=== PATIENT | female | born 1940 | race Caucasian/White ===

== ENCOUNTER 2023-07-03 09:07 | Outpatient (REF) | payer MEDICARE, BC, SELFPAY ==
[2023-07-03 11:05] LABS: Hematocrit 39.9 % (37.0-47.0); Hemoglobin 12.1 g/dl (12.0-16.0); Mean Corpuscular HGB Conc 30.3 g/dl (31.0-35.0); Mean Corpuscular Hemoglobin 25.3 pg (27.0-33.0); Mean Corpuscular Volume 83.3 fL (80.0-98.0); Mean Platelet Volume 10.1 fL (9.4-12.3); Platelet Count 269 X10*3/uL (160-400); Red Blood Count 4.79 X10*6/uL (4.20-5.50); White Blood Count 7.3 X10*3/uL (4.8-10.8)
[2023-07-03 12:09] LABS: Anion Gap 12 (12-20); Blood Urea Nitrogen 19 mg/dL (9-16); Calcium 9.7 mg/dL (8.4-10.2); Carbon Dioxide 26 mmol/L (22-29); Chloride 109 mmol/L (96-108); Estimated Glomerular Filt Rate 49; Glucose Random 86 mg/dL (60-115); Potassium 4.7 mmol/L (3.3-5.1); Sodium 142 mmol/L (135-145)
[2023-07-03 12:28] LABS: TSH reflex Free T4 0.52 uIU/mL (0.32-4.0)
[2023-07-05 17:49] LABS: Transglutaminase IgA <1.0 U/mL
[2023-07-05 19:57] LABS: Immunoglobulin A 104 mg/dL (70-320)
== END 2023-07-03 09:08 | disposition home or self-care (01) ==
LOC: HO.LAB 09:07
PROVIDERS: PCP Internal Medicine; Referring Provider Internal Medicine; Visit Provider Internal Medicine
DX: R10.13 Epigastric pain (principal); R19.7 Diarrhea, unspecified
CPT/HCPCS: 36415; 80048; 82784; 84443; 85027; 86364; 99202

== ENCOUNTER 2023-07-03 09:07 | Outpatient (AMB) | payer MEDICARE, BC, SELFPAY ==
--- NOTE | 2023-07-03 09:08 | MHC.OFFVIS ---
Intake Vital Signs 07/03/23 09:14 Height 5 ft 4 in Weight 174 lb 2.643 oz BMI 29.9 BP 164/65 H Blood Pressure Location Lt brachial Position Sitting Pulse 43 L Intake Visit Reasons: abdominal pain, diarrhea Intake Note: Reba presents in the office as a new patient for abdominal pain. Allergies Seasonal Allergies Allergy (Mild, Verified 07/03/23 09:15) Unknown HPI HPI Comments History of Present Illness Details This is a 82 y.o F with PMH of who is here for new onset of abdominal discomfort and bloating since ablation for Afib in March. Reports abd pressure in epigastric region associated with discomfort and bloating that gets progressively worse during the day. Sometimes leads to early satiety. However no changes in appetite, swallowing, unintentional weight loss. No changes in BMs either. Reports having an xray scheduled for evaluation in Oct. Completed CRC screening. Last EGD was almost 20 y ago for acid reflux per her report. PFSH Medical History (Updated 07/03/23 @ 09:55 by Erma David MD) Hx of cancer of lung Surgical History (Updated 07/03/23 @ 09:16 by ROJELIO Hernandez) Hx of cholecystectomy Hx of colonoscopy History of esophagogastroduodenoscopy (EGD) Family History (Updated 07/03/23 @ 09:17 by ROJELIO Hernandez) Father Colon cancer Review of Systems Const All systems reviewed & are unremarkable except as noted in HPI and below Physical Exam Vital Signs: Last Vital Signs Pulse 43 L 07/03/23 09:14 BP 164/65 H 07/03/23 09:14 BMI result Body Mass Index 29.9 Gen appear: NAD HEENT: nonicteric, no cervical lymphadenopathy Chest: CTA CVS: Regular S1/S2 Abd: soft, nontender, nondistended, bowel sounds + Ext: no peripheral edema Neuro: A/Ox3, noted to move all extremities spontaneously Psych: interacting appropriately Assessment & Plan Assessment & Plan (1) Dyspepsia: Code(s): R10.13 - Epigastric pain Plan Ddx include GERD, dyspepsia, functional bloating. Low suspicion for persistent AFib ablation related esophageal injury more than 3 months out from the procedure and per her report, has already had CT imaging at [place] (presumably to r/o fistula) which was normal - however given the temporality, will eval with EGD. Plan: - Start omeprazole 20 once daily - Labs ordered as below - EGD to be booked in the next 1-2 months. Pt continues to be on eliquis >3 months after ablation. 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 Follow up after EGD Orders: Orders Transglutaminase IgA Today R10.13 - Epigastric pain Complete Blood Count no Diff Today R10.13 - Epigastric pain TSH reflex Free T4 Today R10.13 - Epigastric pain Immunoglobulin A Today R10.13 - Epigastric pain Basic Metabolic Panel Today R10.13 - Epigastric pain Medications: New omeprazole 20 mg PO DAILY 8 weeks 56 caps 0RF Patient Instructions: 1. HOLD famotidine 2. Start omeprazole 20mg by mouth once daily in the morning 30-40 mins before breakfast. Cont this for 8 weeks. 3. We will also book you for an upper endoscopy in the next couple of months to evaluate this further. 4. Please HOLD your blood thinner (Eliquis for 24h before the procedure) if okayed by your heart doctor. Coding Level of Care Code New Pt Level 4 (77261) Diagnoses Dyspepsia R10.13
[2023-07-03 09:14] VITALS: BP 164/65; PULSE 43; BMI 29.9
== END 2023-07-03 10:01 | disposition home or self-care (01) ==
PROVIDERS: PCP Internal Medicine; Referring Provider Internal Medicine; Visit Provider Internal Medicine
DX: R10.13 Epigastric pain (principal)
CPT/HCPCS: 99204

== ENCOUNTER 2023-08-31 06:23 | Day surgery (SDC) | payer MEDICARE, BC, SELFPAY ==
[2023-08-29 11:30] VITALS: BMI 29.9
--- NOTE | 2023-08-30 10:35 | HO.ANESPROP2 ---
Documented by User: Rhona Pearl NP 08/30/23 10:39 HPI - Anesthesia Eval Consult details Narrative: 82yo F for Upper Endoscopy Eliquis for afib - ok to hold per cardiol Follows [facility] cardiology. 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 Urgent ECHO showed no pericardial effusion. CAD with stent 2003 [facility] Active Problems Active Problems: All Active Problems (Updated 08/30/23 @ 07:49 by Shira Franco) Dyspepsia (Acute) Past Medical History Medical History (Updated 08/31/23 @ 06:58 by Cynthia Ngo, ALEE) H/O supraventricular tachycardia Seasonal allergies Elevated cholesterol Anxiety Depression COPD (chronic obstructive pulmonary disease) CLL (chronic lymphocytic leukemia) Myocardial infarction CAD (coronary artery disease) Atrial fibrillation GERD (gastroesophageal reflux disease) Hypothyroid HTN (hypertension) Hx of cancer of lung Family History Family History (Updated 07/03/23 @ 09:17 by ROJELIO Hernandez) Father Colon cancer Surgical History Surgical History (Updated 08/29/23 @ 11:37 by Ronit Maki RN) History of heart artery stent History of lung surgery Hx of prior ablation treatment Hx of cholecystectomy Hx of colonoscopy History of esophagogastroduodenoscopy (EGD) Social History Social History Patient Tobacco Use Status: Former Tobacco user Tobacco use type: Cigarette Meds Allergies Allergy/AdvReac Type Severity Reaction Status Date / Time No Known Allergies Allergy Verified 08/30/23 07:49 Home Medications Medication Instructions Recorded Confirmed Last Taken Type albuterol sulfate 90 mcg/actuation 1 puff inhalation Q4H PRN 07/03/23 08/29/23 Unknown History aerosol inhaler Shortness Of Breath Or Wheezing amlodipine 10 mg tablet 5 mg PO DAILY 07/03/23 08/29/23 Unknown History apixaban 5 mg tablet (Eliquis) 5 mg PO BID 07/03/23 08/29/23 08/29/23 History atenolol 25 mg tablet 12.5 mg PO DAILY 07/03/23 08/29/23 Unknown History atorvastatin 10 mg tablet 10 mg PO DAILY 07/03/23 08/29/23 Unknown History citalopram 20 mg tablet 20 mg PO DAILY 07/03/23 08/29/23 Unknown History donepezil 5 mg tablet 5 mg PO BEDTIME 07/03/23 08/29/23 Unknown History fluticasone fur. 100 mcg-umeclid 1 inh inhalation DAILY 07/03/23 08/29/23 08/31/23 History 62.5 mcg-vilant 25 mcg inhalat.powder (Trelegy Ellipta) levalbuterol HCl 0.63 mg/3 mL 0.63 mg inhalation TID PRN wheezing 07/03/23 08/29/23 08/31/23 History solution for nebulization levothyroxine 75 mcg tablet 75 mcg PO DAILY 07/03/23 08/29/23 Unknown History loratadine 10 mg tablet 10 mg PO DAILY 07/03/23 08/29/23 Unknown History omeprazole 20 mg capsule,delayed 20 mg PO DAILY 07/03/23 Unknown History release simethicone 125 mg chewable tablet 125 mg PO QID PRN gas 07/03/23 08/29/23 Unknown History tramadol 50 mg tablet 50 mg PO BID PRN Pain 07/03/23 08/29/23 Unknown History Exam Exam Date and Time: August 30, 2023 1035 Height,Weight and Vital Signs: Height 5 ft 4 in Weight 78.925 kg Pertinent Lab Results Pertinent Lab Results: Laboratory Tests 07/03/23 10:30 WBC 7.3 Hgb 12.1 Hct 39.9 Plt Count 269 Sodium 142 Potassium 4.7 Chloride 109 H Carbon Dioxide 26 BUN 19 H Creatinine 1.07 Assessment and Plan Assessment Anesthesia Assessment: Chart Reviewed Documented by User: Hai Ramos MD 08/31/23 17:43 [facility] Past Medical History Medical History (Updated 08/31/23 @ 06:58 by Cynthia Ngo RN) H/O supraventricular tachycardia Seasonal allergies Elevated cholesterol Anxiety Depression COPD (chronic obstructive pulmonary disease) CLL (chronic lymphocytic leukemia) Myocardial infarction CAD (coronary artery disease) Atrial fibrillation GERD (gastroesophageal reflux disease) Hypothyroid HTN (hypertension) Hx of cancer of lung Functional capacity: independent ambulation Family History Family History (Updated 07/03/23 @ 09:17 by ROJELIO Hernandez) Father Colon cancer Family history of problems with anesthesia: No Surgical History Surgical History (Updated 08/29/23 @ 11:37 by Ronit Maki RN) History of heart artery stent History of lung surgery Hx of prior ablation treatment Hx of cholecystectomy Hx of colonoscopy History of esophagogastroduodenoscopy (EGD) History of Problems with Anesthesia: No Social History Social History Patient Tobacco Use Status: Former Tobacco user Tobacco use type: Cigarette Meds Allergies Allergy/AdvReac Type Severity Reaction Status Date / Time No Known Allergies Allergy Verified 08/30/23 07:49 Home Medications Medication Instructions Recorded Confirmed Last Taken Type albuterol sulfate 90 mcg/actuation 1 puff inhalation Q4H PRN 07/03/23 08/29/23 Unknown History aerosol inhaler Shortness Of Breath Or Wheezing amlodipine 10 mg tablet 5 mg PO DAILY 07/03/23 08/29/23 Unknown History apixaban 5 mg tablet (Eliquis) 5 mg PO BID 07/03/23 08/29/23 08/29/23 History atenolol 25 mg tablet 12.5 mg PO DAILY 07/03/23 08/29/23 Unknown History atorvastatin 10 mg tablet 10 mg PO DAILY 07/03/23 08/29/23 Unknown History citalopram 20 mg tablet 20 mg PO DAILY 07/03/23 08/29/23 Unknown History donepezil 5 mg tablet 5 mg PO BEDTIME 07/03/23 08/29/23 Unknown History fluticasone fur. 100 mcg-umeclid 1 inh inhalation DAILY 07/03/23 08/29/23 08/31/23 History 62.5 mcg-vilant 25 mcg inhalat.powder (Trelegy Ellipta) levalbuterol HCl 0.63 mg/3 mL 0.63 mg inhalation TID PRN wheezing 07/03/23 08/29/23 08/31/23 History solution for nebulization levothyroxine 75 mcg tablet 75 mcg PO DAILY 07/03/23 08/29/23 Unknown History loratadine 10 mg tablet 10 mg PO DAILY 07/03/23 08/29/23 Unknown History omeprazole 20 mg capsule,delayed 20 mg PO DAILY 07/03/23 Unknown History release simethicone 125 mg chewable tablet 125 mg PO QID PRN gas 07/03/23 08/29/23 Unknown History tramadol 50 mg tablet 50 mg PO BID PRN Pain 07/03/23 08/29/23 Unknown History Exam Airway Mallampati Class: IV Loose/Missing/Broken Teeth: Yes Assessment and Plan Assessment Anesthesia Assessment: Anesthesia Plan Discussed Final Anesthetic Review Family History of Problems with Anesthesia: No History of Problems with Anesthesia: No NPO: Yes ASA Class: IV Final Preanesthetic Review: Meds/Allgs Chart Reviewed, Consent Obtained/Reviewed and Anes Risks/Benef Reviewed Patient Risk: Intermediate Procedure Risk: Intermediate Anesthetic Plan Anesthetic Plan: MAC: and Agree w/ Assess. and Plan Disposition: Standard PACU
[2023-08-31 07:12] VITALS: BP 153/55; PULSE 59; RESP 24; TEMP 36.6; O2SAT 98
[2023-08-31] MEDS: Lactated Ringers 1,000 ML 50 ML IVCONT (07:34)
--- NOTE | 2023-08-31 07:52 | MHC.SHP ---
Pre-Procedural Eval Section A Date of Service: 08/31/23 Section B Chief Complaint: Epigastric pain Details of Present Illness: PMH: AFib s/p ablation Hx of cancer of lung Surgical History Hx of cholecystectomy Hx of colonoscopy History of esophagogastroduodenoscopy (EGD) Present Medications: see Short Stay Collaborative assessment Allergies: Allergies Allergy/AdvReac Type Severity Reaction Status Date / Time No Known Allergies Allergy Verified 08/30/23 07:49 Review of Systems Review of Systems Comment: 10 point ROS negative Exam Exam Comment: Gen appear: No acute distress HEENT: no icterus Chest: No overt resp distress Abd: soft, nontender, nondistended Psych: Stable affect, answering questions appropriately Neuro: A/Ox3 noted to move all extremities spontaneously Ext: no peripheral edema Plan Diagnosis/Plan: Unchanged I have reviewed the history and physical and performed a pertinent physical examination on my patient. No changes have occurred unless specified. Time Spent With Patient Time: Total time managing care of this patient today ____ minutes.
[2023-08-31 08:00] VITALS: PULSE 51; RESP 16; O2SAT 97
[2023-08-31] MEDS: Albuterol/Iprat 2.5/0.5MG 3 ML AMPUL.NEB INHALE (08:00)
--- NOTE | 2023-08-31 08:54 | P.OP_ITS ---
Operative Note Operative Note Date of Service: 08/31/23 Narrative: Procedure: Esophagogastroduodenoscopy Endoscopist: Erma David MD Indication: Epigastric pain, bloating Anesthesia Provider: Irena East CRNA Anesthesia Type: MAC ?? EGD Procedure:?? The procedure, indications, preparation and potential complications were reviewed with the patient, who indicated understanding and gave written informed consent to proceed. A physical exam was performed. The endoscope was introduced through the mouth, and advanced to the second part of duodenum. The mucosa was carefully examined on slow withdrawal of the endoscope. The patient tolerated the procedure well. There were no immediate complications.? ? EGD Findings:? * Esophagus:? A small patch of heterotopic mucosa was noted in the upper esophagus but otherwise normal mucosa noted in the entire esophagus. The Z line was at 32 cm. There was a small hiatal hernia with the diaphragmatic pinch at 35 cm. * Stomach:? Erythema and cobblestoning was noted in the antrum and body of the stomach. Cold forceps biopsies were taken for histology. * Duodenum:? Normal mucosa was noted in the whole of the examined duodenum. Cold forceps biopsies were taken from duodenal bulb and second portion of the duodenum to rule out celiac sprue. ? EGD Impressions:? * Inlet patch * Hiatal hernia * Gastritis (biopsy) * Normal duodenum (biopsy) ?? Recommendations:?? * Follow biopsy results. Our office will call or send a letter with results within 7-10 days. * Start/continue PPI therapy. * If H pylori +, patient will be prescribed eradication therapy followed by test of cure. * Avoid NSAIDs. Above has been reviewed with the patient.
[2023-08-31 09:18] VITALS: BP 110/50; PULSE 59; RESP 22; TEMP 36.4; O2SAT 98
[2023-08-31 09:33] VITALS: BP 148/56; PULSE 59; RESP 16; TEMP 36.4; O2SAT 96
== END 2023-08-31 10:00 | disposition home or self-care (01) ==
PROVIDERS: PCP Internal Medicine; Visit Provider Internal Medicine
PROC: 0DJ08ZZ Inspection of Upper Intestinal Tract, Via Natural or Artificial Opening Endoscopic (ICD-10-PCS; CPT 43235; principal; 2023-08-31 08:20)
DX: R10.13 Epigastric pain (principal); K29.50 Unspecified chronic gastritis without bleeding; K44.9 Diaphragmatic hernia without obstruction or gangrene; Q39.8 Other congenital malformations of esophagus; I48.91 Unspecified atrial fibrillation; I25.10 Atherosclerotic heart disease of native coronary artery without angina pectoris; Z95.5 Presence of coronary angioplasty implant and graft; I25.2 Old myocardial infarction; I10 Essential (primary) hypertension; E78.00 Pure hypercholesterolemia, unspecified; E03.9 Hypothyroidism, unspecified; J44.9 Chronic obstructive pulmonary disease, unspecified; C91.10 Chronic lymphocytic leukemia of B-cell type not having achieved remission; Z79.51 Long term (current) use of inhaled steroids; Z79.01 Long term (current) use of anticoagulants; Z79.899 Other long term (current) drug therapy; Z85.118 Personal history of other malignant neoplasm of bronchus and lung; Z87.891 Personal history of nicotine dependence; Z66 Do not resuscitate
CPT/HCPCS: 43239; 88305; 88342; 94640

== ENCOUNTER → 2023-08-31 06:23 | Outpatient (BNV) | payer MEDICARE, BC, SELFPAY | PROVIDERS: PCP Internal Medicine; Visit Provider Internal Medicine | DX: R10.13 Epigastric pain (principal); K29.70 Gastritis, unspecified, without bleeding; K22.89 Other specified disease of esophagus | CPT/HCPCS: 43239 ==

== ENCOUNTER 2023-09-04 08:59 | Outpatient (AMB) | payer MEDICARE, BC, SELFPAY ==
--- NOTE | 2023-09-04 09:14 | MHC.OFFVIS ---
Intake Vital Signs 09/04/23 09:16 Height 5 ft 4 in Weight 178 lb 9.191 oz BMI 30.6 Intake Visit Reasons: EGD follow up Intake Note: Reba presents in the office as a follow up EGD. CC: She states that she would hope there is an answer to this issue she is having. 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 Reports abd pressure in epigastric region associated with discomfort and bloating that gets progressively worse during the day. Sometimes leads to early satiety. However no changes in appetite, swallowing, unintentional weight loss. No changes in BMs either. Reports having an xray scheduled for evaluation in Oct. Completed CRC screening. Last EGD was almost 20 y ago for acid reflux per her report. 08/31/23: Inlet patch Hiatal hernia Gastritis (biopsy) Normal duodenum (biopsy) A. Duodenum, biopsy: Duodenal mucosa with preserved villi and no specific change. B. Gastric antrum, biopsy: Reactive gastropathy with minimal chronic inactive inflammation; negative for H pylori, intestinal metaplasia and dysplasia. C. Gastric body, biopsy: Gastric body mucosa with reactive changes and focal minimal chronic inactive inflammation; negative for H pylori, intestinal metaplasia and dysplasia. 09/04/23: EGD findings and path reviewed. Pt reassured that no PUD, HP, or significant inflammation noted to explain her sx. Has already had abdominal imaging (CT Abd/pel with IV contrast) through [facility] which was normal from GI standpoint sans liver cysts which are chronic and unrelated. Does not notice much difference with omeprazole. [facility] Medical History (Updated 08/31/23 @ 06:58 by Cynthia Ngo RN) H/O supraventricular tachycardia Seasonal allergies Elevated cholesterol Anxiety Depression COPD (chronic obstructive pulmonary disease) CLL (chronic lymphocytic leukemia) Myocardial infarction CAD (coronary artery disease) Atrial fibrillation GERD (gastroesophageal reflux disease) Hypothyroid HTN (hypertension) Hx of cancer of lung Surgical History (Updated 08/29/23 @ 11:37 by Ronit Maki RN) History of heart artery stent History of lung surgery Hx of prior ablation treatment Hx of cholecystectomy Hx of colonoscopy History of esophagogastroduodenoscopy (EGD) Family History (Updated 07/03/23 @ 09:17 by ROJELIO Hernandez) Father Colon cancer Social History Patient Tobacco Use Status: Former Tobacco user Tobacco use type: Cigarette Review of Systems Const All systems reviewed & are unremarkable except as noted in HPI and below Physical Exam Vital Signs: BMI result Body Mass Index 30.6 Gen appear: NAD HEENT: nonicteric, no cervical lymphadenopathy Chest: CTA CVS: Regular S1/S2 Abd: soft, nontender, nondistended, bowel sounds + Ext: no peripheral edema Neuro: A/Ox3, noted to move all extremities spontaneously Psych: interacting appropriately Assessment & Plan Assessment & Plan (1) Dyspepsia: Code(s): R10.13 - Epigastric pain Plan Likely has dyspepsia vs functional bloating. No evidence of GERD, PUD, H pylori based on the EGD and path. CT normal as well (scanned). No alarm features such as severe abd pain, inability to take PO, unintentional weight loss etc. Pt was reassured and advised to take simethicone for symptomatic relief. She was also advised to keep a food diary to correlate any triggering foods that she can avoid. Recommend r/o pelvic/adnexal abnormalities - pt reports has already been booked for a pelvic US through her [facility]. Can discontinue omeprazole if not helpful. Ok to cont famotidine. Would avoid empiric tx for SIBO with ABx in this 82y.o at present. Follow up PRN Medications: New simethicone (Gas Relief (simethicone)) 125 mg PO BID-QID PRN 90 caps 1RF abdominal distention Coding Level of Care Code Est Pt Level 4 (77302) Diagnoses Dyspepsia R10.13
[2023-09-04 09:16] VITALS: BMI 30.6
== END 2023-09-04 10:41 | disposition home or self-care (01) ==
PROVIDERS: PCP Internal Medicine; Visit Provider Internal Medicine
DX: R10.13 Epigastric pain (principal)
CPT/HCPCS: 99214

== ENCOUNTER → 2023-09-04 08:59 | Outpatient (BNVA) | payer MEDICARE, BC, SELFPAY | PROVIDERS: PCP Internal Medicine; Visit Provider Internal Medicine | DX: R10.13 Epigastric pain (principal) | CPT/HCPCS: 99212 ==